=== PATIENT | male | born 1965 | race Caucasian/White ===

== ENCOUNTER 2016-11-18 15:18 | Inpatient (IN) | payer OTHER ==
[~2016-11-18] VITALS: Ht 175.3 cm; Wt 90.7 kg
[~2016-11-18 15:18] MED LIST: GLUCOPHAGE1000 MG PO; NEURONTIN300 MG PO; TOPROL XL50 MG PO; ZESTRIL20 MG PO
--- NOTE | 2016-11-18 15:18 | NUR ---
Patient was BIBA and taken to bed 01 via gurney per EMS. Patient on 5150 hold.
--- NOTE | 2016-11-18 15:21 | NUR ---
[place] [employer] at bedside.
[2016-11-18 15:28] VITALS: BP 116/65
[2016-11-18] MEDS ORDERED: IBUPROFEN800 M1 PO (15:43)
[2016-11-18] MEDS ORDERED: TRAMADOL HCL50 MG PO (15:43)
[2016-11-18] MEDS ORDERED: FUROSEMIDE20 M1 PO (15:43)
[2016-11-18] MEDS ORDERED: SPIRONOLACTONE25 M1 PO (15:43)
[2016-11-18] MEDS ORDERED: METOPROLOL SUCC25 MG PO (15:43)
[2016-11-18] MEDS ORDERED: LISINOPRIL20 M1 PO (15:43)
[2016-11-18] MEDS ORDERED: BACTRIM 400 MG-1 TAB PO (15:43)
[2016-11-18] MEDS ORDERED: DIAZEPAM10 M1 PO (15:43)
[2016-11-18] MEDS ORDERED: LISINOPRIL40 M1 PO (15:43)
[2016-11-18] MEDS ORDERED: XIFAXAN550 MG PO (15:43)
[2016-11-18] MEDS ORDERED: MILK THISTLE PO (15:44)
[2016-11-18] MEDS ORDERED: THIOCTIC ACID PO (15:44)
--- NOTE | 2016-11-18 15:45 | NUR ---
PATIENT PRESENTS TO ED WITH SI, PLAN IS TAKING PILLS TO OVERDOSE . PT STATES . DENIES N/V/D; SKIN IS PINK/WARM/DRY; AAOX4 WITH EVEN AND STEADY GAIT; LUNGS CLEAR BL; HR EVEN AND REGULAR; PT DENIES ANY FEVER, CP, SOB, OR COUGH AT THIS TIME; PATIENT STATES PAIN OF 0/10 AT THIS TIME; VSS; PATIENT POSITIONED FOR COMFORT; HOB ELEVATED; BEDRAILS UP X2; BED DOWN. ER MD MADE AWARE OF PT STATUS. [place] [employer] AT BEDSIDE--PLACED PT ON 5150 HOLD DANGER TO SELF
--- NOTE | 2016-11-18 15:46 | NUR ---
DR. KANG AT BEDSIDE.
--- NOTE | 2016-11-18 15:46 | NUR ---
LAB AT BEDSIDE.
--- NOTE | 2016-11-18 16:31 | NUR ---
PT REFUSED MEAL--
--- NOTE | 2016-11-18 16:50 | NUR ---
PT CALLED MD OVER TO [place] AND ASKED FOR A BLANKET--MD BROUGHT HIM A BLANKET FROM [facility] AND WAS GOING TO PLACE IT ON PT---PT STOPPED MD AND STATED, "NO, I WANT MY NURSE TO DO IT"! BLANKET LEFT AT BEDSIDE AT PT'S REACH.
--- NOTE | 2016-11-18 17:00 | NUR ---
PT REQUESTED NO VISITORS
--- NOTE | 2016-11-18 17:38 | NUR ---
OFFERED PT WATER, REFUSED AND THANKED ME
[2016-11-18] MEDS ORDERED: LACTULOSE 20 GM/30 ML UDC PO ONE (17:40)
--- NOTE | 2016-11-18 17:50 | NUR ---
PT ASKING IF HE CAN GO HOME, SPEAKING WITH PT----EXPLAINED TO PT HIS AMMONIA LEVEL TOO HIGH AND MAY BE AFFECTING HIS THINKING PROCESS.
--- NOTE | 2016-11-18 17:59 | NUR ---
PT REFUSED LACTULOSE, AFTER SPOKE WITH HIM AT LENGTH TO WHY HE IS BEING ADMITTED.
--- NOTE | 2016-11-18 18:01 | NUR ---
ATTEMPTED TO CALL REPORT TO TELE, PER REJI NO RN HAS BEEN ASSIGNED
--- NOTE | 2016-11-18 18:19 | NUR ---
WAITING FOR ROOM TO BE CLEANED--TEJA GUARDADO RECEIVED REPORT TELE--ANGEL GUARDADOSALAD BAR CLERK ER AWARE
[2016-11-18 19:27] VITALS: BP 122/70
--- NOTE | 2016-11-18 19:27 | NUR ---
Admitted from ER TO TELEMETRY UNIT, with chief complaint of ABSCESS LEFT BUTTOCKS, ON 5150 HOLD , 51 y/o ,Male, Uncooperative, AWAKE, A/OX4. RESPIRATION EVEN AND UNLABORED. NO IV ACCESS. PATIENT IS VERY ANGRY, WANTS TO GET OUT OF THE HOSPITAL. CLAIMED HE CANNOT STAY LONG IN THE HOSPITAL WHICH IS FULL OF GERMS, HE DOES NOT TAKE A BATH IN A BR WHICH IS NOT SANITIZED, DOES NOT WANT TO STAY IN BED WHERE SOMEBODY HAVE . EXPLAINED HE IS ON 515 HOLD. REFUSED BODY CHECK AND REFUSED TELEMONITORING. DEMANDING TO SEE AND TALK WITH DR. QUILES PER ER TOLD TO HIM. DENIES PAIN 0/10. oriented to call light, bed, phone,television, bathroom, smoking policy, visiting hours, procedures, ID bracelet on. Belongings list checked.
--- NOTE | 2016-11-18 19:35 | NUR ---
REFUSED MRSA SCREENING.
--- NOTE | 2016-11-18 20:15 | NUR ---
SPEAKING WITH SOMEBODY IN HIS PHONE, SHOUTING VERY UPSET. SITTER MONITORING PATIENT BEHAVIOR.
[2016-11-18] MEDS ORDERED: DEXTROSE 50% 50 ML SYR IVP PRN (20:30)
[2016-11-18] MEDS ORDERED: INSULIN LISPRO SLIDING SCALE 100 UNITS/ML VIAL SUBQ PRN (20:30)
--- NOTE | 2016-11-18 20:45 | NUR ---
CAME, SERENE SALEH, CLAIMED SHE HAS JURISDICTION APPROVED BY [facility]. VERBALIZED HIS /S AMMONIA LEVEL IS HIGH IT GETS TO HIS BRAIN THAT'S WHY PATIENT IS BEHAVING DIFFERENTLY. WANTS TO TAKE PATIENT TO [facility]. CHARGE NURSE BALTAZAR FOWLER.
--- NOTE | 2016-11-18 20:50 | NUR ---
MONITOR RECORDS TECH YRIS CALLED THE POLICE, PATIENT IS ON 72 HOURS HOLD AND SHOULD STAY IN THE HOSPITAL. AFTER PSYCHE MD EVALUATION, DOCTOR WILL DECIDE IF THE PATIENT CAN BE RELEASED FROM THE HOSPITAL. CHARGE NURSE BALTAZAR INFORMED REGARDING THIS AND GOT THE POLICE PHONE NUMBER AND SPOKE WITH THEM.
[2016-11-18] MEDS: BLOOD GLUCOSE MONITORING 1 DEV DEV FS SCH (21:00)
--- NOTE | 2016-11-18 21:10 | NUR ---
[facility] DEAN YI CAME AND SPOKE WITH AND CHARGE NURSE BALTAZAR.
--- NOTE | 2016-11-18 21:20 | NUR ---
ABRASIVE MIXER SAID THAT PATIENT CANNOT BE RELEASED BECAUSE HE IS ON 5150 HOLD. ACCEPTED DECISION AND WENT HOME.
--- NOTE | 2016-11-18 21:30 | NUR ---
PT'S CAME AND ASKED TO DC PT BECAUSE SHE WANTED TO TAKE HIM TO [facility].EXPLAINED FOR HER THAT BECAUSE PT IS ON 5150 HOLD WE CAN NOT DO THAT.WE CALLED [employer] AND THEY SAID WHEN PT IS ON 72 HOURS HOLD CAN NOT GO HOME.PT'S CALLED [employer] AND SLEEP MANAGER CAME.HE CHECKED THE REPORT OF SLEEP MANAGER AND FINALLY TOLD PT AND HIS THAT PT CAN NOT GO ANY WHERE.PT GOT ANGRY WITH HIS .ALSO HE REFUSED MONITOR THAT MD CHANGED STATUS TO MED/DIALLO ADMIT AND ALSO REFUSED TO EAT FOOD.
--- NOTE | 2016-11-18 22:15 | NUR ---
INFORMED PATIENT, ORDERED THAT HE CAN CONTINUE HIS MEDICATIONS AT HOME. VERBALIZED THAT HE WILL NOT DRINK ANY MEDICATION NOR EAT WHILE STILL IN THE HOSPITAL. EXPLAINED THE EFFECT OF HIS DECISION THAT IT IS NOT GOOD FOR HIS HEALTH. CLAIMED HE CAN LAST FOR 72 HOURS EVEN WITHOUT EATING AND DRINKING HIS MEDICATION. SITTER AT THE BEDSIDE, MONITORING PATIENT BEHAVIOR.
--- NOTE | 2016-11-18 23:00 | NUR ---
SLEEPING IN BED.
[2016-11-19] VITALS: BP 128/72
--- NOTE | 2016-11-19 00:30 | NUR ---
AWAKE IN BED, OFFERED APPLE JUICE BUT REFUSED. REMINDED HE IS DIABETIC AND THAT HIS BLOOD SUGAR CAN GO LOW. STILL REFUSED. SITTER AT THE BEDSIDE MONITORING PATIENT.
--- NOTE | 2016-11-19 02:00 | NUR ---
SPEAKING WITH AND SON IN THE PHONE, STILL VERY UPSET.
--- NOTE | 2016-11-19 02:50 | NUR ---
WANTS TO KNOW WHO WERE HIS DOCTORS AND WHAT TIME THEY WELL COME AND SEE HIM. EXPLAINED THEY MAKE ROUNDS EVERYDAY BUT NOT SURE IF THEY'RE COMING IN THE MORNING OR AFTERNOON. VERBALIZED AGAIN THAT WHILE IN THE HOSPITAL HE WILL NOT BE DRINKING ANY MEDICATION OR EAT ANYTHING, AND IF THAT WILL MAKE HIM MORE CRAZY, AND MAKE HIM STAY FOR THREE MORE DAYS, HE DOES NOT CARE.
--- NOTE | 2016-11-19 03:46 | NUR ---
Patient's Plan of Care was discussed and reviewed with INSTITUTE SCIENTIST: AYALA CUMMINGS.
[2016-11-19] MEDS: LACTULOSE 20 GM/30 ML UDC PO SCH ×4 (04:00→11:58)
[2016-11-19] MEDS: NEOMYCIN 500 MG TAB PO SCH ×3 (06:00→11:58)
--- NOTE | 2016-11-19 07:00 | NUR ---
SITTING ON BED, ALLOWED BS CHECKED, BUT STILL REFUSING CARE AND MEDS. CONDITION REMAIN STABLE. WILL ENDORSE TO AM NURSE FOR CONTINUITY OF CARE.
--- NOTE | 2016-11-19 07:20 | NUR ---
ENDORSED TO GEO MCMILLAN FOR CONTINUITY OF CARE.
--- NOTE | 2016-11-19 07:21 | NUR ---
RECEIVED REPORT FROM THE DIRECTOR OF VETERANS AFFAIRS NURSE AT BEDSIDE. PT IS A 51 Y/O MALE WITH HEPATIC ENCEPHALOPATHY AND 5150. HE HAS A SITTER AT BEDSIDE. PER DIRECTOR OF VETERANS AFFAIRS NURSE, PT REFUSED ALL MEDICAL CARE. DID NOT WANT TO TAKE ANY MEDS, HE REFUSED FOOD, REFUSED V/S, PROCEDURES, REFUSED TO USE THE BATHROOM. PT IS ASKING WHEN DR. MENDENHALL WILL BE HERE. AYALA STATED SHE WILL PAGE . PT REFUSED TO ALLOW ME TO DO V/S WELL. WILL CONTINUE TO MONITOR PT.
[2016-11-19] MEDS: BLOOD GLUCOSE MONITORING 1 DEV DEV FS SCH ×2 (07:30→11:30)
[2016-11-19] MEDS ORDERED: metFORMIN 850 MG TAB PO SCH (08:00)
--- NOTE | 2016-11-19 08:10 | NUR ---
PT REQUESTED TO SEE ME. I WENT IN ASKED WHAT HE NEEDED. PT WANTED TO KNOW IF DR. MENDENHALL CALLED AND WHEN HE IS COMING TO SEE HIM. I EXPLAINED TO HIM THAT HE WAS PAGED BUT HAS NOT RETURNED OUR CALL. I LET HIM KNOW I WILL RE-PAGE THE DR. HE WANTED TO KNOW HOW MANY TIMES WE WILL PAGE UNTIL HE COMES. I TOLD HIM THAT WE CAN ONLY DO OUR PART AND PAGE. HE ASKED TO SPEAK TO THE DERMATOLOGIST MANAGING PARTNER. I INFORMED ANTHONY. ANGELES SPOKE TO PT. PT SAID, "DON'T WASTE YOUR TIME. I AM NOT HAVING ANY BP DONE OR TAKING ANY MEDS. I JUST WANT TO TAKE TO THE '[facility]' ."
[2016-11-19] MEDS ORDERED: FAMOTIDINE 20 MG TAB PO SCH (09:00)
[2016-11-19] MEDS: GABAPENTIN 300 MG CAP PO SCH ×2 (09:00→13:00)
[2016-11-19] MEDS ORDERED: LISINOPRIL 20 MG TAB PO SCH (09:00)
[2016-11-19] MEDS ORDERED: METOPROLOL SUCCINATE 50 MG TABER PO SCH (09:00)
[2016-11-19] MEDS ORDERED: RIFAXIMIN 550 MG TAB PO SCH (09:00)
--- NOTE | 2016-11-19 09:02 | NUR ---
OFFERED PT MORNING MEDS. PT REFUSED. HE IS REFUSING WATER, FOOD, MEDS. HE IS FASTING. HE WILL FAST UNTIL THE DR. GETS HERE. PER PT, THE LONGER THE DR. DOESN'T COME, LONGER HE WILL FAST.
--- NOTE | 2016-11-19 09:45 | NUR ---
C/O OF NEUROPATHY PAIN IN HIS FEET AND LOWER LEGS. BUT HE REFUSES MEDICATION. HE JUST WANTS TO SEE THE PSYCHOLOGIST AND GO HOME. I TOLD HIM I WILL TRY AGAIN. REPAGED THE GROUP.
--- NOTE | 2016-11-19 10:15 | NUR ---
SITTING FOR RANDA. PT STARTS TO SAY WHY WE ARE NOT DOING ANYTHING FOR HIM. WHY THE PSYCHOLOGIST ISN'T HERE. DEMANDING WE FIND ANOTHER. STATED, I BETTER RESTRAIN HIM OR HE IS GOING TO WALK OUT. CALLED SALES REPRESENTATIVE ELECT[employer]IC [employer]. ALEX CAME AND SPOKE TO PT. STATED THAT WE WILL HAVE TO CALL THE POLICE. HE IS ANGRY AND AGITATED. FEELS LIKE IT IS A CONSPIRACY. STATED HE RATHER GO TO NURSING HOME THAN BE KEPT HERE.
--- NOTE | 2016-11-19 10:30 | NUR ---
SECURITY WAS HERE. SPOKE TO PT AND LEFT.
--- NOTE | 2016-11-19 10:47 | NUR ---
SPOKE TO DR. MENDEZ. HE DOES NOT NEED RESTRAINTS. SHE SAID TO FOLLOW OUR PROTOCOL HERE.
--- NOTE | 2016-11-19 10:52 | NUR ---
PER CHARGE, SECURITY WILL CALL [facility]
--- NOTE | 2016-11-19 11:29 | NUR ---
SPOKE WITH DR. MENDEZ REGARDING PT'S 'S REQUEST TO TRANSFER PT TO [place] (WHERE PT IS WAITING FOR LIVER TRANSPLANT) OR [facility]. MENDEZ STATED TO WAIT FOR PSYCH CONSULT TO COME AND SEE PT. PAGED DR. MENDENHALL AGAIN TO FOLLOW UP WITH THE CONSULT. AWAITING FOR CALL BACK.
--- NOTE | 2016-11-19 11:30 | NUR ---
PT REFUSED GLUCOSE CHECK.
--- NOTE | 2016-11-19 11:35 | NUR ---
DR. WALLER, PSYCHOLOGIST, CALLED. SHE WILL BE HERE AT 3PM. SHE HAS OTHER PTS SO THAT IS THE BEST SHE CAN DO. NOTIFIED PT. PT DOESN'T BELIEVE THAT SHE WILL BE HERE. HE WANTS US TO CALL THE POLICE. PER SECURITY, POLICE WILL NOT PICK HIM UP BECAUSE HE HAS NOT COMMITTED A CRIME. HE HAS BEEN INFORMED. HE WILL CALL THE POLICE HIMSELF.
--- NOTE | 2016-11-19 12:20 | NUR ---
CM NOTE INITIAL REVIEW SENT TO [facility] FAX# [phone] PH# [place] [phone] JANUARY [phone] AND TO [facility] FAX# [phone]
--- NOTE | 2016-11-19 12:46 | NUR ---
PT NEEDS A CIGARETTE SMOKE. PT IS WILLING TO STAY UNTIL DR. RUSSELL GETS HERE. SPOKE TO ALEX, PIPE FITTER SUPERVISOR MAINTENANCE. ASKED ME TO CALL AND GET ORDER. SPOKE TO . OK TO GO SMOKE ACCOMPANIED BY MANAGER NICU. NOTIFIED SECURITY TO COME, PT AWARE HE CAN GO.
--- NOTE | 2016-11-19 15:16 | NUR ---
DR. RUSSELL IS NOT HERE YET. PT IS UPSET THAT SHE ISN'T HERE. HE SAID HE HAD IT. HE WILL WALK OUT OF HERE. PAGED DR. RUSSELL. IS ON HER WAY, BE HERE IN 15 MIN. I ASKED HIM TO WAIT 15 MORE MIN AND THEN HE CAN MAKE HIS DECISION, WHATEVER THAT MAY BE. PT WILL WAIT.
--- NOTE | 2016-11-19 15:42 | NUR ---
DR RUSSELL IS HERE, TALKING TO THE PT. WILL CONTINUE TO MONITOR.
--- NOTE | 2016-11-19 16:15 | NUR ---
PER DR. RUSSELL, HE IS CLEARED TO GO HOME. PT IS UPSET AND ANGRY BUT IS A DANGER TO SELF OR OTHERS. WAITING FOR DR. MENDEZ TO CALL FOR D/C ORDER. Addendum: 11/19/16 at 1623 by Jeana Warner RN PT IS NOT A DANGER TO SELF OR OTHERS... DEFINITELY NOT...
--- NOTE | 2016-11-19 16:31 | NUR ---
SS NOTE: I SPOKE WITH PT BEDSIDE AND PROVIDED HIM WITH OUTPT MENTAL HEALTH RESOURCES.
--- NOTE | 2016-11-19 16:33 | NUR ---
PAGED DR. MENDEZ TO GET A DC ORDER FROM . CALLED. BC OF HIS HIGH AMMONIA LEVEL, THINKS WE SHOULDN'T RELEASE HIM, THAT HE NEEDS TX. IF HE WANTS TO GO AMA, THAT IS FINE. WILL RELAY MESSAGE TO PT.
--- NOTE | 2016-11-19 16:43 | NUR ---
SPOKE TO PT. RELAYED TO PT WHAT DR. MENDEZ SAID. PT IS GOING TO SIGN THE AMA AND LEAVE. PT IS ESCORTED BY NEWS ANCHOR TO THE FRONT OF THE HOSPITAL. PT TOOK HIS HOME MEDS WITH HIM. ADVISED HIM TO GO HOME AND TAKE HIS MEDS AND F/U WITH HIS .
== END 2016-11-19 16:45 | disposition left against medical advice (07) | DRG 756 ==
LOC: MED 15:18 → MTU 17:29
PROVIDERS: ADMIT Hospitalist; ATTEND Hospitalist
DX: F41.1 Generalized anxiety disorder (principal); E11.42 Type 2 diabetes mellitus with diabetic polyneuropathy; D69.6 Thrombocytopenia, unspecified; G47.9 Sleep disorder, unspecified; K72.90 Hepatic failure, unspecified without coma; I10 Essential (primary) hypertension; K75.81 Nonalcoholic steatohepatitis (NASH); K74.60 Unspecified cirrhosis of liver; Z53.21 Procedure and treatment not carried out due to patient leaving prior to being seen by health care provider; F17.210 Nicotine dependence, cigarettes, uncomplicated; Z79.899 Other long term (current) drug therapy